=== PATIENT | male | born 1965 | race Caucasian/White ===

== ENCOUNTER 2017-05-04 09:10 | Outpatient (CLI) | payer OTHER ==
--- NOTE | 2017-05-04 11:35 | MRI ---
RIGHT KNEE MRI WITHOUT IV CONTRAST: History: 52-year-old male with history of right knee pain following an injury after falling off a truck. Technique: Multiplanar, multisequence MRI examination of the right knee is performed. FINDINGS: The axial images do not completely include the patella. There is evidence for a joint effusion with a distended suprapatellar recess. Within the suprapatellar recess there is a tortuous linear soft tiss ue density which appears to be a torn lateral plica which extends across the midline to the medial si de of the suprapatellar recess. There is a complete displaced proximal ACL tear with what appears to be some displaced proximal ACL fibers which are noted anteriorly projecting into the posterior aspect of Hoffa's fat. The posterior cruciate ligament is intact. There is extensive complex tear of the lateral meniscus wi th what appears to be a large displaced meniscal fragment extending somewhat cranially from the poste rior root. There is also a fairly extensive complex tear of the medial meniscus including a FLAP or m ultiple FLAP components. There is a very large lateral femoral condyle osteo chondral impaction injur y as well as posterior proximal tibial contusion and infraction changes and also medial femoral condy le contusion changes. There is some increased signal in the medial collateral ligament, evidence for proximal MCL strain or sprain. Lateral collateral ligament complex appears intact although there is a ssociated fluid adjacent to the lateral collateral ligament complex region. Considerable respiratory motion artifact lowers the sensitivity of this study. Considerable superficial subcutaneous fat stran ding as well as some scattered deep fluid density probably related to prior capsular rupture. IMPRESSION: Very extensive injuries of the knee including markedly displaced proximal ACL tear, extensive complex medial and lateral meniscal tears, extensive bone contusions. Joint effusion with distention of the suprapatellar recess. Probable torn lateral plica which the free edge of which extends across the mid line into the medial suprapatellar recess. MCL sprain. Other findings as above. POS: BRI
== END 2017-05-04 09:11 | disposition home or self-care (01) ==
LOC: TBSIIMAG 09:10
PROVIDERS: ATTEND Orthopaedic Surgery
DX: M23.91 Unspecified internal derangement of right knee (principal); M25.561 Pain in right knee; M25.461 Effusion, right knee

== ENCOUNTER 2017-05-13 05:42 | Observation (INO) | payer OTHER ==
[2017-05-12 10:31] VITALS: BMI 28.2
[2017-05-13 06:49] LABS: Hemoglobin 16.4 g/dL (14.0-18.0); Mean Corpuscular HGB CONC 32.9 g/dL (32.0-36.0); Mean Corpuscular Hemoglobin 28.7 pg (27.0-31.0); Mean Corpuscular Volume 87.2 fl (80.0-94.0); Mean Platelet Volume 7.9 fL (7.4-10.4); Platelet Count 227 thou/uL (130-400); RBC Distribution Width 12.3 % (11.5-14.5); Red Blood Cell (RBC) Count 5.72 mill/uL (4.70-6.10); White Blood Cell (WBC) Count 5.6 thou/uL (4.8-10.8)
[2017-05-13] MEDS ORDERED: Clindamycin/D5W 600 mg/50 ml Premix Bag ONE (07:06)
[2017-05-13 07:16] LABS: Anion Gap 11 mmol/L (10-20); BUN (Urea Nitrogen) 20 mg/dL (8.4-25.7); Calc. Creatinine Clearance 109 mL/min (70-130); Calcium 9.7 mg/dL (7.8-10.44); Carbon Dioxide 27 mmol/L (22-29); Chloride 107 mmol/L (98-107); Estimated GFR-MDRD 68; Glucose 101 mg/dL (70-105); Potassium 4.4 mmol/L (3.5-5.1); Sodium 141 mmol/L (136-145)
[2017-05-13] MEDS ORDERED: Famotidine/PF 20 mg/2ml Vial ONE (07:47)
[2017-05-13] MEDS ORDERED: Fentanyl 100 MCG/2 ML VIAL ONE ×5 (07:47→11:07)
[2017-05-13] MEDS ORDERED: Midazolam HCl 2 mg/2 ml Vial ONE (07:47)
[2017-05-13] MEDS ORDERED: HYDROcodone/Acetaminophen 7.5/325 mg Tablet PO PRN (11:03)
[2017-05-13] MEDS ORDERED: Ondansetron HCl/PF 4 MG/2 ML Vial IVP PRN (11:03)
[2017-05-13] MEDS ORDERED: Milk Of Magnesia 30 ML UDCUP PO PRN (11:03)
[2017-05-13] MEDS ORDERED: Methocarbamol 500 MG TAB PO PRN (11:03)
[2017-05-13] MEDS ORDERED: traMADol HCl 50 MG TAB PO PRN (11:03)
[2017-05-13] MEDS ORDERED: Acetaminophen 500 MG TAB PO PRN (11:03)
[2017-05-13] MEDS ORDERED: Bisacodyl 10 MG SUPP PR PRN (11:03)
[2017-05-13] MEDS ORDERED: diphenhydrAMINE 50 MG CAP PO PRN (11:03)
[2017-05-13] MEDS ORDERED: Meloxicam 15 MG TAB PO PRN (11:15)
[2017-05-13] MEDS ORDERED: Cyclobenzaprine 10 MG TAB PO PRN (11:15)
--- NOTE | 2017-05-13 11:32 | OP ---
DATE OF PROCEDURE: 05/13/2017. PREOPERATIVE DIAGNOSES: 1. Right knee anterior cruciate ligament tear. 2. Medial meniscus tear with locked portion of meniscus. 3. Lateral meniscal tear. POSTOPERATIVE DIAGNOSIS: 1. Anterior cruciate ligament tear. 2. Complex tear of the posterior horn of the medial meniscus including multiple flaps, one which flipped posteriorly still attached to the root, one which flipped into the recess between the tibia, and meniscus anteriorly where the body and the posterior horn emerge. 3. Lateral meniscal tear including a portion of the posterior horn of the lateral meniscus attached to the root which had flipped up into the notch. 4. Grade 3 condyle lesion of the medial femoral condyle near the notch region with associated floating loose cartilaginous body. 5. Small grade 3 lesion lateral femoral condyle secondary to trauma. PROCEDURE PERFORMED: 1. Exam under anesthesia, right knee. 2. Right knee arthroscopy with partial medial and lateral meniscectomies. 3. Arthroscopically assisted ACL reconstruction using allograft Achilles tendon. SURGEON: Ham Richard M.D. VICE PRESIDENT RISK MANAGEMENT: Jere Toledo PA-C. BLOOD LOSS: Minimal. COMPLICATIONS: None. ANESTHESIA: He did have general anesthetic. He also had a preoperative block. IMPLANTS: On the knee; Arthrex 7 x 25 metal interference screw for the femur. We used an Arthrex Delta screw, which was a 9 mm diameter Delta screw, backed up by an Arthrex bicortical screw with a soft tissue washer for our tibial fixation. CONDITION: He did go to the recovery room in stable condition. INDICATIONS: A 52-year-old male injured his knee and came in with a locked knee. MRI confirmed a significant injury to the knee and at this time, he opted to have surgery. DESCRIPTION OF PROCEDURE: After all appropriate consent forms were explained and signed, Mckay was taken to the operating room and at this time was given general anesthetic. Once anesthesia was appropriate, the tourniquet was placed on the right lower extremity and an exam under anesthesia was performed. The patient was unable to fully extend the knee by at least 10 degrees and good flexion was noted. At this time, a positive Juve exam was also noted even though we had a locked knee. The leg was then placed in an arthroscopic leg bhatt was then prepped and draped in standard surgical fashion. Limb was then exsanguinated and tourniquet was taken up to 300 mmHg. An inferolateral portal was established and the scope was placed into the knee joint. A needle localization technique was then used to make a medial working portal just off the medial edge of the patellar tendon and at this time we commenced our arthroscopy. Bloody fluid was evacuated, torn ACL was noted as well as significant amount of tissue in the notch. This was debrided with the shaver and at this time, any remnant of the ligament was debrided with the shaver. We then turned our attention to the medial compartment, a significant complex tear of the posterior horn of the medial meniscus was noted with multiple flap components. This was not repairable by any means and therefore partial meniscectomy was performed of unstable flaps back to a stable base. There was still a tear in the posterior horn remnant of the medial meniscus, but it was unable to be pulled into the knee and I did not feel that this needed to be treated because it would not locked his knee up and my hope is that with the postoperative hematoma, we did get this to scarred down and leave some meniscus for him. The lateral side was evaluated. There was a tear in the posterior horn of the lateral meniscus which had gone up into the notch. This was removed with the biter and shaver as well. Remaining lateral meniscus was intact. The tibia was in good on the lateral side. The femur on the lateral side had a grade 3 lesion right in the middle secondary to impact. Some small unstable chondral flaps were noted. There was a large grade 2, possibly grade 3 lesion on the medial femoral condyle with no unstable flaps right on the edge of the medial femoral condyle in the notch region and we later found this piece of cartilage up in the suprapatellar pouch. Obviously that was removed. At this time, we then swept through the knee. Patellofemoral joint was in good condition. The gutters were found to be cleaned and again once we removed that other piece of cartilage from the suprapatellar pouch there were no other issues. We then performed our notchplasty with the marcie and shaver in standard fashion, we then flexed the knee up through the medial portal and placed an over -the-top guide and placed a pin up and out the anterolateral thigh. This was then reamed with a 10 mm reamer and dilator were used to dilate the compactor bone tunnels. All loose bony cartilaginous debris was then removed from the knee joint. The tibial guide was then set at 55 degrees and a pin was placed once we made an incision down through skin, and our soft tissue. Any brisk venous bleeding was coagulated. The pin was placed through the guide. We then reamed with a 10 mm reamer and again compacted our tunnel with the dilator. We again then removed any loose bony cartilaginous debris. We then went dry down the knee. Our graft had been prepared on the back table with a 20 mm bone plug at 10 mm in diameter size. At this point, we then flexed the knee up and placed a pin up and out the anterolateral thigh one more time followed by using this to pull our passing suture into the knee. We then pulled the suture down through the tibial tunnel and used this to pull our graft up into the knee joint. Once our plug was inside the femoral tunnel, we fixated this with a 7 x 25 metal interference screw in standard fashion. We then got the knee in essentially full extension and placed a 9 mm Delta screw anterior to the graft followed by backing up this fixation with a bicortical screw with a soft tissue washer. This allowed the patient's knee to go through full range of motion and under direct visualization the graft was not found to impinge in the notch. Scope was removed, the knee was drained at this time. We then cut off our excess graft. We sutured the graft into the surrounding periosteal tissue. We then used 2-0 Vicryl and javier to close our incisions. Bulky sterile dressing was applied and the tourniquet was let down. Toes pinked up nicely. The patient was awakened and he was taken to the recovery room in stable condition. All counts were correct at the end of the case and he did receive preoperative IV antibiotics. FELIZ
[2017-05-13] MEDS: Morphine 5 MG/ML SYRINGE SLOW IVP PRN ×2 (12:20→18:54)
[2017-05-13] MEDS: Clindamycin/D5W 900 MG in Premix Bag 1 BAG IVPB SCH ×2 (12:22→18:55)
[2017-05-13] MEDS: Ketorolac Tromethamine 30 MG/ML VIAL IVP SCH ×3 (12:22→23:22)
[2017-05-13] MEDS: HYDROcodone/Acetaminophen 7.5/325 mg Tablet PO PRN ×2 (15:12→20:20)
[2017-05-13] MEDS ORDERED: Bupivacaine HCl 0.5%/Epinephrine 1:200,000/PF 30 ml Vial ONE (15:57)
[2017-05-13] MEDS ORDERED: Propofol 200 MG/20 ML VIAL ONE (16:20)
[2017-05-13] MEDS ORDERED: PHENYLEPHRINE-NS 100 MCG/ML 10 ML SYRINGE ONE (16:20)
[2017-05-13] MEDS ORDERED: Ketorolac Tromethamine 30 MG/ML VIAL ONE (16:20)
[2017-05-13] MEDS ORDERED: Lidocaine 1% PF 5 ML VIAL ONE (16:20)
[2017-05-13] MEDS: Famotidine 20 MG TAB PO SCH (20:20)
[2017-05-13] MEDS: Dextrose 5 %-0.45 % NaCl 1,000 ML IV SCH (21:54)
[2017-05-14] MEDS: Ketorolac Tromethamine 30 MG/ML VIAL IVP SCH (05:50)
[2017-05-14] MEDS: Dextrose 5 %-0.45 % NaCl 1,000 ML IV SCH ×2 (07:23→07:24)
[2017-05-14 08:25] VITALS: TEMP 98.4
[2017-05-14] MEDS ORDERED: Anastrozole 1 MG TAB PO SCH (09:00)
[2017-05-14] MEDS: Famotidine 20 MG TAB PO SCH (09:03)
[2017-05-14] MEDS: HYDROcodone/Acetaminophen 7.5/325 mg Tablet PO PRN (11:41)
[2017-05-14 13:31] VITALS: BP 134/87
== END 2017-05-14 11:56 | disposition home or self-care (01) ==
LOC: SDC 05:42 → SURG B 11:03
PROVIDERS: ADMIT Orthopaedic Surgery; ATTEND Orthopaedic Surgery
PROC: 0SBC4ZZ Excision of Right Knee Joint, Percutaneous Endoscopic Approach (ICD-10-PCS; principal; 2017-05-14)
PROC: 0SBC4ZZ Excision of Right Knee Joint, Percutaneous Endoscopic Approach (ICD-10-PCS; 2017-05-14)
PROC: 0MQN4ZZ Repair Right Knee Bursa and Ligament, Percutaneous Endoscopic Approach (ICD-10-PCS; 2017-05-14)
DX: S83.511A Sprain of anterior cruciate ligament of right knee, initial encounter (principal); S83.231A Complex tear of medial meniscus, current injury, right knee, initial encounter; S83.281A Other tear of lateral meniscus, current injury, right knee, initial encounter; M24.08 Loose body, other site; M24.10 Other articular cartilage disorders, unspecified site; G43.909 Migraine, unspecified, not intractable, without status migrainosus; Z88.0 Allergy status to penicillin; Z79.899 Other long term (current) drug therapy; Z98.890 Other specified postprocedural states
CPT/HCPCS: 36415; 80048; 85027; 93005; 93010; 96365; 96374; 96375; 96376; J2270; C1713; G0378; G8978-GP-CI; G8979-GP-CI; G8980-GP-CI; J0171; J0670; J1885; J2001; J2250; J2704; J3010; J3370; J3490; S0028

== ENCOUNTER 2021-06-01 10:42 | Outpatient (CLI) | payer OTHER, BC ==
[2021-06-01 12:05] LABS: Hemoglobin 15.3 g/dL (13.5-17.5); Mean Corpuscular HGB CONC 33.4 g/dL (32.0-36.0); Mean Corpuscular Hemoglobin 28.2 pg (27.0-33.0); Mean Corpuscular Volume 84.3 fl (81.2-95.1); Mean Platelet Volume 9.7 fl (7.4-10.4); Platelet Count 214 10x3/uL (150-450); RBC Distribution Width 13.1 % (11.5-14.5); Red Blood Cell (RBC) Count 5.43 10x6/uL (4.32-5.72); White Blood Cell (WBC) Count 5.2 10x3/uL (3.5-10.5)
[2021-06-01 13:11] LABS: Anion Gap 15 mmol/L (10-20); BUN (Urea Nitrogen) 14 mg/dL (8.4-25.7); Calc. Creatinine Clearance 0 mL/min (70-130); Calcium 9.2 mg/dL (7.8-10.44); Carbon Dioxide 26 mmol/L (22-29); Chloride 105 mmol/L (98-107); Glucose 90 mg/dL (70-105); Potassium 4.3 mmol/L (3.5-5.1); Sodium 142 mmol/L (136-145)
[2021-06-02 00:07] LABS: SARS-CoV-2 PCR by NAA Not Detected (NotDetected)
== END 2021-06-01 10:43 | disposition home or self-care (01) ==
LOC: LABBT 10:42
PROVIDERS: ATTEND Surgery
DX: Z01.818 Encounter for other preprocedural examination (principal); M48.02 Spinal stenosis, cervical region; M54.12 Radiculopathy, cervical region; Z20.822 Contact with and (suspected) exposure to COVID-19
CPT/HCPCS: 80048; 85027; 85610; 85730; 86850; 86900; 86901; 93005; 93010; U0003; U0005